=== PATIENT | male | born 1950 | race Caucasian/White ===

== ENCOUNTER → 2020-01-25 13:18 | Outpatient (BNVA) | payer MEDICARE, OTHER, SELFPAY | PROVIDERS: Family Provider Family Medicine; PCP Family Medicine; Referring Provider Internal Medicine Rheumatology; Visit Provider Internal Medicine Rheumatology | DX: M06.09 Rheumatoid arthritis without rheumatoid factor, multiple sites (principal); Z79.899 Other long term (current) drug therapy; Z11.59 Encounter for screening for other viral diseases; Z79.01 Long term (current) use of anticoagulants; Z79.52 Long term (current) use of systemic steroids | CPT/HCPCS: 99214 ==

== ENCOUNTER → 2020-07-27 14:55 | Outpatient (BNVA) | payer MEDICARE, BC, SELFPAY | PROVIDERS: Family Provider Family Medicine; PCP Family Medicine; Visit Provider Internal Medicine Rheumatology | DX: M06.041 Rheumatoid arthritis without rheumatoid factor, right hand (principal); M06.042 Rheumatoid arthritis without rheumatoid factor, left hand; Z79.899 Other long term (current) drug therapy; Z79.52 Long term (current) use of systemic steroids | CPT/HCPCS: 99214 ==

== ENCOUNTER → 2021-01-23 13:54 | Outpatient (BNVA) | payer MEDICARE, BC, SELFPAY | PROVIDERS: Family Provider Family Medicine; PCP Family Medicine; Visit Provider Internal Medicine Rheumatology | DX: M06.041 Rheumatoid arthritis without rheumatoid factor, right hand (principal); M06.042 Rheumatoid arthritis without rheumatoid factor, left hand; Z79.899 Other long term (current) drug therapy; Z79.52 Long term (current) use of systemic steroids; Z87.891 Personal history of nicotine dependence | CPT/HCPCS: 99214 ==

== ENCOUNTER → 2021-05-28 14:36 | Outpatient (BNVA) | payer MEDICARE, BC, SELFPAY | PROVIDERS: Family Provider Family Medicine; PCP Family Medicine; Visit Provider Internal Medicine Rheumatology | DX: M06.041 Rheumatoid arthritis without rheumatoid factor, right hand (principal); M06.042 Rheumatoid arthritis without rheumatoid factor, left hand; Z79.899 Other long term (current) drug therapy; Z71.89 Other specified counseling; Z87.891 Personal history of nicotine dependence; Z79.891 Long term (current) use of opiate analgesic | CPT/HCPCS: 99214 ==

== ENCOUNTER → 2021-11-20 14:10 | Outpatient (BNVA) | payer MEDICARE, BC, SELFPAY | PROVIDERS: Family Provider Family Medicine; PCP Family Medicine; Visit Provider Internal Medicine Rheumatology | DX: M06.041 Rheumatoid arthritis without rheumatoid factor, right hand (principal); M06.042 Rheumatoid arthritis without rheumatoid factor, left hand; Z79.899 Other long term (current) drug therapy; Z79.52 Long term (current) use of systemic steroids; Z71.89 Other specified counseling; Z87.891 Personal history of nicotine dependence | CPT/HCPCS: 99214 ==

== ENCOUNTER → 2022-05-21 13:35 | Outpatient (BNVA) | payer MEDICARE, BC, SELFPAY | PROVIDERS: Family Provider Family Medicine; PCP Family Medicine; Visit Provider Internal Medicine Rheumatology | DX: M06.041 Rheumatoid arthritis without rheumatoid factor, right hand (principal); M06.042 Rheumatoid arthritis without rheumatoid factor, left hand; Z79.899 Other long term (current) drug therapy; Z79.52 Long term (current) use of systemic steroids; Z71.89 Other specified counseling | CPT/HCPCS: 99214 ==

== ENCOUNTER → 2022-11-21 12:50 | Outpatient (BNVA) | payer MEDICARE, BC, SELFPAY | PROVIDERS: Family Provider Family Medicine; PCP Family Medicine; Visit Provider Internal Medicine Rheumatology | DX: M06.042 Rheumatoid arthritis without rheumatoid factor, left hand (principal); M06.041 Rheumatoid arthritis without rheumatoid factor, right hand; Z79.899 Other long term (current) drug therapy; Z71.89 Other specified counseling; Z79.52 Long term (current) use of systemic steroids; K21.9 Gastro-esophageal reflux disease without esophagitis | CPT/HCPCS: 99214 ==

== ENCOUNTER 2023-03-13 11:03 | Outpatient (CLI) | payer MEDICARE, BC, SELFPAY ==
[2023-03-13 11:28] LABS: Basophils # 0.1 10^3/uL (0.0-0.1); Basophils % 0.8 %; Eosinophils # 0.2 10^3/uL (0.0-0.8); Eosinophils % 1.8 %; Hematocrit 44.1 % (42.0-52.0); Hemoglobin 13.9 g/dL (11.7-16.6); Lymphocytes # 0.7 10^3/uL (0.8-4.8); Lymphocytes % 7.1 %; Mean Corpuscular HGB Conc 31.5 g/dL (30.0-36.0); Mean Corpuscular Hemoglobin 30.7 pg (28.0-34.0); Mean Corpuscular Volume 97.4 fl (80-94); Mean Platelet Volume 10.7 fL (7.4-10.4); Monocytes # 0.6 10^3/uL (0.2-0.9); Monocytes % 6.8 %; Neutrophils # 7.75 10^3/uL (1.8-7.7); Neutrophils % 83.1 %; Nucleated Red Blood Cells % 0 %; Platelet Count 221 10^3/cmm (130-400); Red Blood Count 4.53 10^6/uL (4.1-5.3); Red Cell Distribution Width 14.6 % (12.1-15.1); White Blood Count 9.3 10^3/uL (4.0-10.0)
[2023-03-13 11:57] LABS: Alanine Aminotransferase 11 U/L (0-41); Albumin Level 3.9 g/dL (3.5-5.2); Alkaline Phosphatase 73 U/L (40-130); Aspartate Amino Transferase 13 U/L (0-40); C Reactive Protein 6.3 mg/L (0.0-4.9); Globulin 2.5 g/dL (1.3-4.6); Total Bilirubin 0.4 mg/dL (0.15-1.2); Total Protein 6.4 g/dL (6.6-8.7)
== END 2023-03-13 11:04 | disposition home or self-care (01) ==
LOC: LAB 11:08
PROVIDERS: PCP Family Medicine; Visit Provider Internal Medicine Rheumatology
DX: M06.041 Rheumatoid arthritis without rheumatoid factor, right hand (principal); M06.042 Rheumatoid arthritis without rheumatoid factor, left hand; Z79.899 Other long term (current) drug therapy
CPT/HCPCS: 80076; 82565; 85025; 86140

== ENCOUNTER 2023-05-21 11:46 | Outpatient (CLI) | payer MEDICARE, BC, SELFPAY ==
[2023-05-21 12:42] LABS: Basophils # 0.1 10^3/uL (0.0-0.1); Basophils % 0.8 %; Eosinophils # 0.2 10^3/uL (0.0-0.8); Eosinophils % 2.3 %; Hematocrit 43.6 % (42.0-52.0); Hemoglobin 14.1 g/dL (11.7-16.6); Lymphocytes # 0.7 10^3/uL (0.8-4.8); Lymphocytes % 6.4 %; Mean Corpuscular HGB Conc 32.3 g/dL (30.0-36.0); Mean Corpuscular Hemoglobin 31.6 pg (28.0-34.0); Mean Corpuscular Volume 97.8 fl (80-94); Mean Platelet Volume 10.8 fL (7.4-10.4); Monocytes # 0.8 10^3/uL (0.2-0.9); Monocytes % 8.3 %; Neutrophils # 8.31 10^3/uL (1.8-7.7); Neutrophils % 81.7 %; Nucleated Red Blood Cells % 0 %; Platelet Count 243 10^3/cmm (130-400); Red Blood Count 4.46 10^6/uL (4.1-5.3); White Blood Count 10.2 10^3/uL (4.0-10.0)
[2023-05-21 12:58] LABS: Alanine Aminotransferase 14 U/L (0-41); Albumin Level 3.8 g/dL (3.5-5.2); Alkaline Phosphatase 74 U/L (40-130); Aspartate Amino Transferase 12 U/L (0-40); C Reactive Protein 4.6 mg/L (0.0-4.9); Globulin 2.5 g/dL (1.3-4.6); Total Bilirubin 0.5 mg/dL (0.15-1.2); Total Protein 6.3 g/dL (6.6-8.7)
== END 2023-05-21 11:47 | disposition home or self-care (01) ==
LOC: LAB 11:55
PROVIDERS: PCP Family Medicine; Visit Provider Internal Medicine Rheumatology
DX: M06.041 Rheumatoid arthritis without rheumatoid factor, right hand (principal); M06.042 Rheumatoid arthritis without rheumatoid factor, left hand; Z79.899 Other long term (current) drug therapy
CPT/HCPCS: 36415; 80076; 82565; 85025; 86140

== ENCOUNTER → 2023-06-25 14:40 | Outpatient (BNVA) | payer MEDICARE, BC, SELFPAY | PROVIDERS: PCP Family Medicine; Visit Provider Internal Medicine Rheumatology | DX: M06.041 Rheumatoid arthritis without rheumatoid factor, right hand (principal); M06.042 Rheumatoid arthritis without rheumatoid factor, left hand; Z79.899 Other long term (current) drug therapy; Z71.89 Other specified counseling; Z79.52 Long term (current) use of systemic steroids | CPT/HCPCS: 99214 ==

== ENCOUNTER 2023-07-31 12:43 | Outpatient (CLI) | payer MEDICARE, BC, SELFPAY ==
[2023-07-31 13:01] LABS: Basophils % 0.5 %; Eosinophils % 0.4 %; Hematocrit 41.9 % (37-53); Lymphocytes # 0.6 10^3/uL (0.8-4.8); Lymphocytes % 7.2 %; Mean Corpuscular HGB Conc 32.2 g/dL (30-55); Mean Corpuscular Volume 96.3 fl (82-101); Monocytes # 0.4 10^3/uL (0.2-0.9); Monocytes % 4.4 %; Neutrophils % 87.1 %; Nucleated Red Blood Cells % 0 %; Platelet Count 188 10^3/cmm (157-399); Red Blood Count 4.35 10^6/uL (3.85-5.65); Red Cell Distribution Width 13.9 % (12.1-15.1); White Blood Count 7.92 10^3/uL (3.29-11.43)
[2023-07-31 13:21] LABS: Alanine Aminotransferase 20 U/L (0-41); Albumin Level 3.6 g/dL (3.5-5.2); Alkaline Phosphatase 82 U/L (40-130); Aspartate Amino Transferase 20 U/L (0-40); C Reactive Protein 8.7 mg/L (0.0-4.9); Globulin 2.7 g/dL (1.3-4.6); Total Bilirubin 0.5 mg/dL (0.15-1.2); Total Protein 6.3 g/dL (6.6-8.7)
== END 2023-07-31 12:44 | disposition home or self-care (01) ==
PROVIDERS: PCP Family Medicine; Visit Provider Internal Medicine Rheumatology
DX: M06.041 Rheumatoid arthritis without rheumatoid factor, right hand (principal); M06.042 Rheumatoid arthritis without rheumatoid factor, left hand; Z79.899 Other long term (current) drug therapy
CPT/HCPCS: 36415; 80076; 82565; 85025; 86140

== ENCOUNTER 2023-11-11 10:26 | Outpatient (CLI) | payer MEDICARE, BC, SELFPAY ==
[2023-11-11 11:42] LABS: Basophils # 0.1 10^3/uL (0.0-0.1); Basophils % 0.9 %; Eosinophils # 0.2 10^3/uL (0.0-0.8); Eosinophils % 2.1 %; Hematocrit 41.8 % (37-53); Lymphocytes # 0.7 10^3/uL (0.8-4.8); Lymphocytes % 6.9 %; Mean Corpuscular HGB Conc 32.3 g/dL (30-55); Mean Corpuscular Hemoglobin 29.8 pg (27-33); Mean Corpuscular Volume 92.3 fl (82-101); Mean Platelet Volume 11.7 fL (7.4-10.4); Monocytes # 1.1 10^3/uL (0.2-0.9); Monocytes % 11.2 %; Neutrophils # 7.46 10^3/uL (1.8-7.7); Neutrophils % 78.3 %; Nucleated Red Blood Cells % 0 %; Platelet Count 213 10^3/cmm (157-399); Red Blood Count 4.53 10^6/uL (3.85-5.65); Red Cell Distribution Width 14.4 % (12.1-15.1); White Blood Count 9.54 10^3/uL (3.29-11.43)
[2023-11-11 11:46] LABS: Erythrocyte Sedimentation Rate 10 mm/hr (0-10)
[2023-11-11 11:58] LABS: Alanine Aminotransferase 16 U/L (0-41); Albumin Level 3.7 g/dL (3.5-5.2); Alkaline Phosphatase 85 U/L (40-130); Aspartate Amino Transferase 16 U/L (0-40); C Reactive Protein 11.1 mg/L (0.0-4.9); Globulin 2.8 g/dL (1.3-4.6); Total Bilirubin 0.5 mg/dL (0.15-1.2); Total Protein 6.5 g/dL (6.6-8.7)
== END 2023-11-11 10:27 | disposition home or self-care (01) ==
PROVIDERS: PCP Family Medicine; Visit Provider Internal Medicine Rheumatology
DX: M06.041 Rheumatoid arthritis without rheumatoid factor, right hand (principal); M06.042 Rheumatoid arthritis without rheumatoid factor, left hand; Z79.899 Other long term (current) drug therapy; Z79.52 Long term (current) use of systemic steroids; Z71.89 Other specified counseling
CPT/HCPCS: 36415; 80076; 82565; 85025; 85651; 86140; 99214

== ENCOUNTER 2024-03-03 15:03 | Outpatient (CLI) | payer MEDICARE, BC, SELFPAY ==
[2024-03-03 15:41] LABS: Basophils # 0.1 10^3/uL (0.0-0.1); Basophils % 1.5 %; Eosinophils # 0.3 10^3/uL (0.0-0.8); Lymphocytes # 0.7 10^3/uL (0.8-4.8); Lymphocytes % 12.9 %; Mean Corpuscular HGB Conc 32.1 g/dL (30-55); Mean Corpuscular Volume 93.5 fl (82-101); Mean Platelet Volume 11.1 fL (7.4-10.4); Monocytes # 0.6 10^3/uL (0.2-0.9); Monocytes % 10.8 %; Neutrophils # 3.79 10^3/uL (1.8-7.7); Neutrophils % 69.6 %; Nucleated Red Blood Cells % 0 %; Platelet Count 233 10^3/cmm (157-399); Red Blood Count 4.17 10^6/uL (3.85-5.65); Red Cell Distribution Width 13.9 % (12.1-15.1); White Blood Count 5.44 10^3/uL (3.29-11.43)
[2024-03-03 16:02] LABS: Alanine Aminotransferase 16 U/L (0-41); Albumin Level 3.8 g/dL (3.5-5.2); Alkaline Phosphatase 95 U/L (40-130); Aspartate Amino Transferase 19 U/L (0-40); C Reactive Protein 7.3 mg/L (0.0-4.9); Globulin 2.7 g/dL (1.3-4.6); Total Bilirubin 0.2 mg/dL (0.15-1.2); Total Protein 6.5 g/dL (6.6-8.7)
== END 2024-03-03 15:04 | disposition home or self-care (01) ==
LOC: LAB 15:07
PROVIDERS: PCP Family Medicine; Visit Provider Internal Medicine Rheumatology
DX: M06.041 Rheumatoid arthritis without rheumatoid factor, right hand (principal); M06.042 Rheumatoid arthritis without rheumatoid factor, left hand; Z79.899 Other long term (current) drug therapy
CPT/HCPCS: 36415; 80076; 82565; 85025; 86140

== ENCOUNTER 2024-06-30 12:04 | Outpatient (CLI) | payer MEDICARE, BC, SELFPAY ==
[2024-06-30 12:52] LABS: Basophils # 0.1 10^3/uL (0.0-0.1); Basophils % 0.9 %; Eosinophils # 0.2 10^3/uL (0.0-0.8); Eosinophils % 2.2 %; Hematocrit 40.4 % (37-53); Lymphocytes # 0.6 10^3/uL (0.8-4.8); Lymphocytes % 8.2 %; Mean Corpuscular HGB Conc 31.2 g/dL (30-55); Mean Corpuscular Hemoglobin 29.2 pg (27-33); Mean Corpuscular Volume 93.7 fl (82-101); Mean Platelet Volume 11.7 fL (7.4-10.4); Monocytes # 0.8 10^3/uL (0.2-0.9); Monocytes % 10.8 %; Neutrophils # 5.92 10^3/uL (1.8-7.7); Neutrophils % 77.5 %; Nucleated Red Blood Cells % 0 %; Platelet Count 213 10^3/cmm (157-399); Red Blood Count 4.31 10^6/uL (3.85-5.65); Red Cell Distribution Width 15.7 % (12.1-15.1); White Blood Count 7.65 10^3/uL (3.29-11.43)
[2024-06-30 13:11] LABS: Erythrocyte Sedimentation Rate 17 mm/hr (0-10)
[2024-06-30 13:17] LABS: Alanine Aminotransferase 16 U/L (0-41); Albumin Level 3.9 g/dL (3.5-5.2); Alkaline Phosphatase 79 U/L (40-130); Aspartate Amino Transferase 24 U/L (0-40); C Reactive Protein 5.2 mg/L (0.0-4.9); Globulin 2.8 g/dL (1.3-4.6); Total Bilirubin 0.3 mg/dL (0.15-1.2); Total Protein 6.7 g/dL (6.6-8.7)
== END 2024-06-30 12:05 | disposition home or self-care (01) ==
LOC: LAB 12:05
PROVIDERS: PCP Family Medicine; Visit Provider Internal Medicine Rheumatology
DX: Z79.899 Other long term (current) drug therapy (principal); M06.041 Rheumatoid arthritis without rheumatoid factor, right hand; M06.042 Rheumatoid arthritis without rheumatoid factor, left hand
CPT/HCPCS: 36415; 80076; 82565; 85025; 85651; 86140

== ENCOUNTER → 2024-07-15 13:34 | Outpatient (BNVA) | payer MEDICARE, BC, SELFPAY | PROVIDERS: PCP Family Medicine; Visit Provider Internal Medicine Rheumatology | DX: M06.041 Rheumatoid arthritis without rheumatoid factor, right hand (principal); Z79.899 Other long term (current) drug therapy; M06.042 Rheumatoid arthritis without rheumatoid factor, left hand; Z71.89 Other specified counseling | CPT/HCPCS: 99214 ==

== ENCOUNTER 2024-09-20 11:17 | Emergency (ER) | payer MEDICARE, OTHER, SELFPAY ==
[2024-09-20] VITALS (7 sets, daily range): BP systolic 118–144; BP diastolic 80–88; PULSE 67–90; RESP 14–24; TEMP 36.4; O2SAT 93–100; BMI 25.0
--- NOTE | 2024-09-20 13:23 | ED_ITS ---
HPI - Back Pain/Injury 2 General: Chief Complaint: Back Pain/Injury Stated Complaint: back pain Time Seen by Provider: 09/20/24 13:12 Source: patient Mode of arrival: ambulatory Limitations: no limitations History of Present Illness: Patient is a nice 74-year-old male who presents to ED today with a complaint of left-sided back pain. states at the end of July he was diagnosed with shingles. He was placed on steroids and antivirals. Patient states rash has went away but states he has had worsening pain since. states every day it gets worse and worse . He has tried multiple medications including gabapentin, lyrica, hydrocodone, oxycodone all without relief. He did not tolerate side effects of gabapentin/lyrica. She states the pain does not ever give . They have put in referrals for pain management but cannot get into them for several months. They have tried red light laser therapy and acupuncture without relief. Pain is causing him significant distress during the day and keeping him up at night. They were reportedly seen by their primary care provider and recommended to come to the emergency department to make sure it is not related to something else . MD elicited complaint: back pain Onset (ago): week(s) Timing: constant Severity: severe Pain scale (0-10): 10 Location: left upper back Radiation: abdomen Exacerbating factors: movement Relieving factors: none Context: other (recent shingles) Associated symptoms: Reports no associated symptoms Work related injury: No Related Data Home Medications Medication Instructions Recorded Confirmed warfarin 5 mg tablet 5 mg PO DAILY 01/24/20 07/15/24 levothyroxine PO 01/23/21 07/15/24 Previous Rx's Medication Instructions Recorded prednisone 10 mg tablet See Rx Instructions PO .COMPLEX 07/14/24 PRN joint pain #60 tabs leflunomide 20 mg tablet 20 mg PO DAILY #90 tabs 07/15/24 pantoprazole 40 mg tablet,delayed See Rx Instructions PO DAILY #90 07/15/24 release tabs prednisone 5 mg tablet 5 mg PO DAILY #90 tabs 07/15/24 amitriptyline 10 mg tablet 10 mg PO DAILY #60 tabs 09/20/24 oxycodone-acetaminophen 7.5 mg-325 1 tab PO Q12H PRN pain #20 tabs 09/20/24 mg tablet (Percocet) Allergies Allergy/AdvReac Type Severity Reaction Status Date / Time enoxaparin [From Lovenox] Allergy Unknown Verified 09/20/24 11:36 heparin Allergy Unknown Verified 09/20/24 11:35 PFSH ED 2 PFSH: Medical History Chronic steroid use Seronegative rheumatoid arthritis of both hands Encounter for health education Rheumatoid arthritis High risk medication use Immunization counseling Surgical History History of appendectomy Family History Other Family history of heart attack Lupus (systemic lupus erythematosus) Stroke Denies family history of Rheumatoid arthritis Diabetes Social History Smoking and tobacco/nicotine status: never used tobacco/nicotine Alcohol intake: never Physical Exam 2 Const: COMMON NORMALS: no acute distress, average body habitus, patient oriented x3, no limitations, healthy appearing, alert and well nourished G ENERAL APPEARANCE: cooperative ORIENTATION/CONSCIOUSNESS: Yes awake, Yes oriented to person, Yes oriented to place and Yes oriented to time Chest: COMMONS NORMALS: normal inspection of the chest and normal palpation of entire chest wall Resp: COMMON NORMALS: normal respiratory effort and clear to auscultation bilaterally AUSCULTATION: clear to auscultation bilaterally Cardio: COMMON NORMALS: regular rate and regular rhythm RATE: regular rate RHYTHM: regular rhythm GI: COMMON NORMALS: Normal to inspection, nondistended, normoactive bowel sounds present, Soft to palpation, non-tender, No hepatosplenomegaly present and no masses PALPATION: Yes Soft to palpation and Yes No hepatosplenomegaly present OTHER: few areas of scarring from previous shingles : BLADDER/KIDNEY EXAM: Yes CVA tenderness on the left (over site where he had shingles) Back/Pelvis: COMMON NORMALS: thoracic and lumbar spine normal to inspection, no thoracic nor lumbar tenderness, thoraco-lumbar ROM normal and straight leg raise negative bilaterally GENERAL BACK: Yes CVA tenderness BACK IMAGE (MALE): 1. TTP; scarring from previous shingles rash Extremity: GENERAL: Yes normal exam except as noted Neuro: COMMON NORMALS: patient oriented x3, moves all extremities, no focal motor deficits, no sensory deficits noted and gait normal S ENSORIUM/ORIENTATION: Yes alert, Yes oriented to person, Yes oriented to place and Yes oriented to time Course 2 Vital Signs: Vital signs: Vital Signs Temperature 97.6 F 09/20/24 11:28 Pulse Rate 68 09/20/24 14:48 Respiratory Rate 16 09/20/24 14:48 Blood Pressure 126/80 09/20/24 14:48 Pulse Oximetry 94 09/20/24 14:48 Oxygen Delivery Me thod Room Air 09/20/24 14:48 MDM - Back Pain/Injury Medical Decision Making Patient's pain consistent with postherpetic neuralgia. No other etiologies identified on blood work/UA/CT imaging. He has failed treatment with Lyrica and gabapentin. Will place on amitriptyline. requesting refill for his oxycodone. Dr. Bajwa will write for this. Recommend he continue to follow-up with primary care. They also have plans to follow-up with pain management. Labs 09/20/24 14:16 09/20/24 14:16 Radiology Impressions Abdomen/Pelvis CT 09/20/24 13:33 IMPRESSION: 1. Cholelithiasis without acute cholecystitis. 2. No renal obstruction. 3. No free air or ascites. 4. Sigmoid diverticulosis without acute diverticulitis. Laboratory Results WBC 7.85 10^3/uL (3.29-11.43) 09/20/24 14:16 RBC 4.62 10^6/uL (3.85-5.65) 09/20/24 14:16 Hgb 13.80 g/dL (11.27-16.99) 09/20/24 14:16 Hct 43.7 % (37-53) 09/20/24 14:16 MCV 94.6 fl (82-101) 09/20/24 14:16 MCH 29.9 pg (27-33) 09/20/24 14:16 MCHC 31.6 g/dL (30-55) 09/20/24 14:16 RDW 14.8 % (12.1-15.1) 09/20/24 14:16 Plt Count 221 10^3/cmm (157-399) 09/20/24 14:16 MPV 11.6 fL (7.4-10.4) H 09/20/24 14:16 Neut % (Auto) 70.1 % 09/20/24 14:16 Lymph % (Auto) 12.9 % 09/20/24 14:16 [place] % (Auto) 13.1 % 09/20/24 14:16 Eos % (Auto) 2.4 % 09/20/24 14:16 Baso % (Auto) 1.1 % 09/20/24 14:16 Neut # (Auto) 5.50 10^3/uL (1.8-7.7) 09/20/24 14:16 Lymph # (Auto) 1.0 10^3/uL (0.8-4.8) 09/20/24 14:16 [place] # (Auto) 1.0 10^3/uL (0.2-0.9) H 09/20/24 14:16 Eos # (Auto) 0.2 10^3/uL (0.0-0.8) 09/20/24 14:16 Baso # (Auto) 0.1 10^3/uL (0.0-0.1) 09/20/24 14:16 Nucleated RBC % (auto) 0 % 09/20/24 14:16 Nucleated RBCs # 0.0 /100WBC 09/20/24 14:16 Sodium 138 mmol/L (136-145) 09/20/24 14:16 Potassium 4.0 mmol/L (3.5-5.1) 09/20/24 14:16 Chloride 101 mmol/L (98-107) 09/20/24 14:16 Carbon Dioxide 25 mmol/L (22-29) 09/20/24 14:16 Anion Gap 16.0 (5-19) 09/20/24 14:16 BUN 12 mg/dL (8-23) 09/20/24 14:16 Creatinine 0.9 mg/dL (0.7-1.2) 09/20/24 14:16 GFR Calculation Not Reportable 09/20/24 14:16 Glucose 128 mg/dL (65-115) H 09/20/24 14:16 Calculated Osmolality 287 mOsm/kg (285-295) 09/20/24 14:16 Calcium 8.6 mg/dL (8.5-10.5) 09/20/24 14:16 Total Bilirubin 0.4 mg/dL (0.15-1.2) 09/20/24 14:16 AST 22 U/L (0-40) 09/20/24 14:16 ALT 24 U/L (0-41) 09/20/24 14:16 Alkaline Phosphatase 73 U/L (40-130) 09/20/24 14:16 Total Protein 6.4 g/dL (6.6-8.7) L 09/20/24 14:16 Albumin 3.8 g/dL (3.5-5.2) 09/20/24 14:16 Globulin 2.6 g/dL (1.3-4.6) 09/20/24 14:16 Urine Color Yellow (Yellow) 09/20/24 14:16 Urine Appearance Clear (CLEAR) 09/20/24 14:16 Urine pH 6.0 (5-7) 09/20/24 14:16 Ur Specific [place] 1.017 (1.005-1.030) 09/20/24 14:16 Urine Protein Negative (Negative) 09/20/24 14:16 Urine Glucose (UA) Negative (Normal) 09/20/24 14:16 Urine Ketones Negative (Negative) 09/20/24 14:16 Urine Blood Negative (Negative) 09/20/24 14:16 Urine Nitrate Negative (Negative) 09/20/24 14:16 Urine Bilirubin Negative (Negative) 09/20/24 14:16 Urine Urobilinogen 1.0 mg/dL (Negative) 09/20/24 14:16 Ur Leukocyte Esterase Negative (Negative) 09/20/24 14:16 Urine RBC 0-2 /hpf (0-2) 09/20/24 14:16 Urine WBC 0-5 /hpf (0-5) 09/20/24 14:16 Ur Squamous Epith Cells 0-5 /hpf (0-5) 09/20/24 14:16 Amorphous Sediment Not Reportable 09/20/24 14:16 Urine Bacteria None seen /hpf (NONE) 09/20/24 14:16 Hyaline Casts 0-4 /lpf H 09/20/24 14:16 All radiology interpretation(s) finalized by discharge Discharge Plan Discharge Patient Disposition: Home Clinical Impression: Post herpetic neuralgia Condition: Stable Prescriptions: New oxycodone-acetaminophen [Percocet] 7.5-325 mg tablet 1 tab PO Q12H PRN (Reason: pain) Qty: 20 0RF amitriptyline 10 mg tablet 10 mg PO DAILY Qty: 60 0RF Rx Instructions: Start 10 mg at bedtime. May increase by 10 mg weekly until he reaches 50mg. No Action warfarin 5 mg tablet 5 mg PO DAILY levothyroxine PO leflunomide 20 mg tablet 20 mg PO DAILY Qty: 90 1RF pantoprazole 40 mg tablet,delayed release (DR/EC) See Rx Instructions PO DAILY Qty: 90 1RF Rx Instructions: take in AM 30 minutes before meal PO daily; prednisone 5 mg tablet 5 mg PO DAILY Qty: 90 1RF prednisone 10 mg tablet See Rx Instructions PO .COMPLEX PRN (Reason: joint pain) Qty: 60 0RF Rx Instructions: take 1 daily for 4-5 days prn joint pain flare PO PRN; Discharge Orders: Discharge ED (Routine); Ordered 09/20/24 Ordered By: Yseika Kay Referrals: Toi Johnson MD [Primary Care Provider] - Patient Instructions: Opioid Safety, Pain Management Activity Restrictions/Additional Instructions: As we discussed, please continue to follow-up with primary care provider. Other [id number] topical therapies include capsaicin cream and lidocaine cream/patches. Coding Level of Care Code ED Checker/Stocker for Johanna Plummer
--- NOTE | 2024-09-20 13:33 | CT_ITS ---
WS: [id number] CT ABDOMEN AND PELVIS WITH CONTRAST HISTORY: L back/abdominal pain TECHNIQUE: Imaging performed of the abdomen and pelvis with IV contrast. Single phase imaging of the abdomen. Coronal and sagittal reformats are submitted. All CT scans at [facility] use at [address] one of these dose optimization techniques: automated exposure control; mA and/or kV adjustment per patient size (includes targeted exams where dose is matched to clinical indication); or iterative re construction. IV CONTRAST: Omnipaque 350; 100 mL IV. Oral contrast: No DLP: 643.34 mGy.cm COMPARISON: None available. Lower thorax: Pulmonary nodules at the lung bases are subcentimeter. These may be postinflammatory. N o prior studies for comparison. Nodules are less than 6 mm. Heart is normal size. Small hiatal hernia . Liver/biliary system: Normal size with no intrahepatic dilatation. Gallbladder: Normally distended gallbladder with a stone. No adjacent inflammation. Common bile duct is not dilated. Pancreas: Mild fatty replacement. Spleen: Small caliber spleen with granulomata. Adrenal glands: Normal. Right kidney: Normal. Left kidney: Normal. Aorta: Mild atherosclerosis with no aneurysm. Lymphadenopathy: None. Free fluid: None. GI tract: Nondistended stomach. No small bowel obstruction. Moderate diffuse constipation. Prior appe ndectomy. Mild sigmoid diverticulosis without acute diverticulitis. Abdominal wall: Fat containing umbilical hernia. Pelvis: Minimally distended bladder. Mild prostate gland enlargement. Bones: Increase in lumbar lordosis. 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 T12 pr ior kyphoplasty. Prior ORIF LEFT hip. CT/CT abdomen pelvis w con* [id number] IMPRESSION: 1. Cholelithiasis without acute cholecystitis. 2. No renal obstruction. 3. No free air or ascites. 4. Sigmoid diverticulosis without acute diverticulitis.
[2024-09-20] MEDS: ondansetron 2 mg/ML SDV 2 mL 4 MG IM (14:09)
[2024-09-20] MEDS: morphine 4 mg/mL SDV 1 mL IM (14:10)
[2024-09-20 14:23] LABS: Basophils # 0.1 10^3/uL (0.0-0.1); Basophils % 1.1 %; Eosinophils # 0.2 10^3/uL (0.0-0.8); Eosinophils % 2.4 %; Hematocrit 43.7 % (37-53); Lymphocytes % 12.9 %; Mean Corpuscular HGB Conc 31.6 g/dL (30-55); Mean Corpuscular Hemoglobin 29.9 pg (27-33); Mean Corpuscular Volume 94.6 fl (82-101); Mean Platelet Volume 11.6 fL (7.4-10.4); Monocytes % 13.1 %; Neutrophils % 70.1 %; Nucleated Red Blood Cells % 0 %; Platelet Count 221 10^3/cmm (157-399); Red Blood Count 4.62 10^6/uL (3.85-5.65); Red Cell Distribution Width 14.8 % (12.1-15.1); White Blood Count 7.85 10^3/uL (3.29-11.43)
[2024-09-20 14:26] LABS: Bilirubin Urine Negative (Negative); Blood Urine Negative (Negative); Glucose Urine UA Negative (Normal); Ketones Urine Negative (Negative); Leukocyte Esterase Urine Negative (Negative); Nitrate Urine Negative (Negative); Protein Urine Negative (Negative); Specific Gravity, Urine 1.017 (1.005-1.030); Urine Appearance Clear (CLEAR); Urine Color Yellow (Yellow)
[2024-09-20 14:28] LABS: Add Urine Microscopic? YES; Bacteria Urine None Seen /hpf; Hyaline Casts Urine 0-4 /lpf; RBC Urine 0-2 /hpf (0-2); Squamous Epithelial Cell Urine 0-5 /hpf (0-5); WBC Urine 0-5 /hpf (0-5)
[2024-09-20 14:40] LABS: Alanine Aminotransferase 24 U/L (0-41); Albumin Level 3.8 g/dL (3.5-5.2); Alkaline Phosphatase 73 U/L (40-130); Blood Urea Nitrogen 12 mg/dL (8-23); Calcium 8.6 mg/dL (8.5-10.5); Carbon Dioxide 25 mmol/L (22-29); Chloride 101 mmol/L (98-107); Creatinine Clr Calc Pharmacy 81.3958; Globulin 2.6 g/dL (1.3-4.6); Glucose 128 mg/dL (65-115); Osmolality Calculated 287 mOsm/kg (285-295); Sodium 138 mmol/L (136-145); Total Bilirubin 0.4 mg/dL (0.15-1.2); Total Protein 6.4 g/dL (6.6-8.7)
[2024-09-20 14:46] LABS: Aspartate Amino Transferase 22 U/L (0-40)
[2024-09-20] MEDS: iohexol 350 mg/mL 500 mL Btl (per mL) IV (15:12)
== END 2024-09-20 16:11 | disposition home or self-care (01) ==
PROVIDERS: Emergency Provider Physician Assistant; PCP Family Medicine
DX: B02.29 Other postherpetic nervous system involvement (principal); Z79.01 Long term (current) use of anticoagulants
CPT/HCPCS: 74177; 80053; 81001; 85025; 99285; J2270; J2405

== ENCOUNTER → 2025-01-13 13:05 | Outpatient (BNVA) | payer MEDICARE, SELFPAY | PROVIDERS: PCP Family Medicine; Visit Provider Internal Medicine Rheumatology | DX: M06.041 Rheumatoid arthritis without rheumatoid factor, right hand (principal); M06.042 Rheumatoid arthritis without rheumatoid factor, left hand; Z79.899 Other long term (current) drug therapy; Z71.89 Other specified counseling | CPT/HCPCS: 36415; 80076; 82565; 85025; 85651; 86140; 99214 ==

== ENCOUNTER 2025-05-18 09:42 | Outpatient (CLI) | payer MEDICARE, OTHER, SELFPAY ==
[2025-05-18 10:55] LABS: Hematocrit 43.6 % (37-53); Hemoglobin 13.60 g/dL (11.27-16.99); Mean Corpuscular HGB Conc 31.2 g/dL (30-55); Mean Corpuscular Hemoglobin 29.1 pg (27-33); Mean Corpuscular Volume 93.2 fl (82-101); Nucleated Red Blood Cells % 0 %; Platelet Count 219 10^3/cmm (157-399); Red Blood Count 4.68 10^6/uL (3.85-5.65); White Blood Count 10.47 10^3/uL (3.29-11.43)
[2025-05-18 11:19] LABS: Alanine Aminotransferase 32 U/L (0-41); Albumin Level 3.8 g/dL (3.5-5.2); Alkaline Phosphatase 82 U/L (40-130); Aspartate Amino Transferase 17 U/L (0-40); Globulin 2.5 g/dL (1.3-4.6); Total Protein 6.3 g/dL (6.6-8.7)
== END 2025-05-18 09:43 | disposition home or self-care (01) ==
PROVIDERS: PCP Family Medicine; Visit Provider Internal Medicine Rheumatology
DX: M06.041 Rheumatoid arthritis without rheumatoid factor, right hand (principal); M06.042 Rheumatoid arthritis without rheumatoid factor, left hand; Z79.899 Other long term (current) drug therapy; Z71.85 Encounter for immunization safety counseling
CPT/HCPCS: 36415; 80076; 82565; 85025; 85651; 86140; 99214

== ENCOUNTER 2025-09-06 15:22 | Outpatient (CLI) | payer MEDICARE, OTHER, SELFPAY ==
[2025-09-06 15:57] LABS: Hematocrit 38.5 % (37-53); Hemoglobin 12.10 g/dL (11.27-16.99); Mean Corpuscular HGB Conc 31.4 g/dL (30-55); Mean Corpuscular Hemoglobin 29.2 pg (27-33); Mean Corpuscular Volume 93.0 fl (82-101); Nucleated Red Blood Cells % 0 %; Platelet Count 288 10^3/cmm (157-399); Red Blood Count 4.14 10^6/uL (3.85-5.65); White Blood Count 7.50 10^3/uL (3.29-11.43)
[2025-09-06 16:22] LABS: Alanine Aminotransferase 14 U/L (0-41); Albumin Level 3.9 g/dL (3.5-5.2); Alkaline Phosphatase 84 U/L (40-130); Aspartate Amino Transferase 12 U/L (0-40); Globulin 2.3 g/dL (1.3-4.6); Total Protein 6.2 g/dL (6.6-8.7)
== END 2025-09-06 15:23 | disposition home or self-care (01) ==
PROVIDERS: PCP Family Medicine; Visit Provider Internal Medicine Rheumatology
DX: Z79.899 Other long term (current) drug therapy (principal)
CPT/HCPCS: 80076; 82565; 85025; 85651; 86140